=== PATIENT | female | born 1995 | race American Indian/Alaskan Native ===

== ENCOUNTER 2021-01-18 12:22 | Emergency (ER) | payer SELFPAY ==
[2021-01-18 14:47] VITALS: BP 126/81
--- NOTE | 2021-01-18 14:47 | Emergency Department Report ---
ED Female HPI - General Stated complaint: , ABD PAIN, HEADACHE Time Seen by Provider: 01/18/21 14:46 Source: patient Mode of arrival: Ambulatory Limitations: No Limitations - History of Present Illness Initial comments: 25-year-old female presents to the ER today with complaints of abdominal pain. Patient states that the pain started this morning. She described as a constant pain. Patient states that she is currently . She states that her last menstrual cycle was sometime in September 2020 but she is not exactly sure how many weeks she is. She did have her first [facility] appointment this past Saturday during which time a day did lab tests and made a follow-up appointment for the next 4 weeks. She states that is an [facility] at [place]. Patient denies any associated bleeding with the pain. She denies any abnormal discharge. She denies any nausea, vomiting or UTI symptoms. She is G3, P2 Ab1. Complaint: pelvic pain, other () -: Sudden (this morning ) - Related Data Allergies Allergy/AdvReac Type Severity Reaction Status Date / Time No Known Allergies Allergy Verified 01/18/21 14:47 ED Review of Systems ROS: Stated complaint: , ABD PAIN, HEADACHE Other details as noted in HPI Comment: All other systems reviewed and negative Constitutional: denies: chills, fever Eyes: denies: eye pain, eye discharge, vision change ENT: denies: ear pain, throat pain, dental pain, hearing loss, epistaxis, congestion Respiratory: denies: cough, shortness of breath, SOB with exertion, SOB at rest, wheezing Cardiovascular: denies: chest pain, palpitations, dyspnea on exertion, orthopnea, edema, syncope, paroxysmal nocturnal dyspnea Gastrointestinal: abdominal pain. denies: nausea, vomiting, diarrhea, constipation, hematemesis, hematochezia Genitourinary: denies: urgency, dysuria, frequency, hematuria, discharge, abnormal menses, dyspareunia Musculoskeletal: denies: back pain, joint swelling, arthralgia Skin: denies: rash, lesions, change in color, change in hair/nails, pruritus Neurological: denies: headache, weakness, numbness, paresthesias, confusion, abnormal gait, vertigo Psychiatric: denies: anxiety, depression, auditory hallucinations, visual hallucinations, homicidal thoughts, suicidal thoughts Hematological/Lymphatic: denies: easy bleeding, easy bruising ED Past Medical Hx - Social History Smoking Status: Never Smoker Substance Use Type: None ED Course Vital Signs 01/18/21 14:43 Temperature 98 F Pulse Rate 92 H Respiratory 16 Rate Blood Pressure 126/81 O2 Sat by Pulse 100 Oximetry ED Medical Decision Making - Lab Data Result diagrams: 01/18/21 15:14 01/18/21 15:14 - Radiology Data Radiology results: report reviewed Patient: HENNY OJEDA MR#: [id number] 7 : 1995 Acct:[id number] Age/Sex: 25 / F ADM Date: 01/18/21 Loc: ED Attending Dr: Ordering Physician: MARY JO MEADE Date of Service: 01/18/21 Procedure(s): US OB <= 14 wk fetus add gest Accession Number(s): [id number] cc: MARY JO MEADE US OB <= 14 wk fetus add gest INDICATION: lower abd pain/+preg/lmc sep 2020. TECHNIQUE: Transabdominal. COMPARISON: None. FINDINGS: There is a single intrauterine . Biparietal Diameter = 1.9 cm Head Circumference = 8.2 cm Abdominal Circumference = 7.5 cm Femur Length = 1.5 cm Heart Rate: 138 beats per minute. Position: cephalic. Cervix: Not well evaluated on this exam. Placenta: Not well evaluated on this exam Amniotic Fluid Volume: normal Maternal Adnexa: No significant abnormality. IMPRESSION: 1. Single, living intrauterine with estimated sonographic age of 13 weeks, 5 day(s). 2. No significant sonographic abnormality. Signer Name: Agusto Levi MD Signed: 01/18/2021 7:02 PM Workstation Name: [id number] Transcribed By: CS Dictated By: Agusto Levi MD Electronically Authenticated By: Agusto Levi MD Signed Date/Time: 01/18/211901 DD/ 00 TD/TT: - Medical Decision Making Quant HCG [id number] with US showing single live IUP measuring at about 13 weeks and 5 days; Nothing else acute noted seen on US CBC/CMP and UA unremarkable Pt currently resting comfortably. She is not in any pain distress. She is not toxic or ill appearing and appears well hydrated. He is neurologically intact with a normal gait in the ER. She has non surgical abd exam and therefore not concern for acute abdomen requiring additional imaging/testing indicated at this time. Her VS stable. Discussed US/lab results with patient. Recommend tylenol for pain but recommend close f/u with OBGYN. Pt expressed understanding of instructions and agreed with plan. Pt was stable at time of d/c. Critical care attestation.: If time is entered above; I have spent that time in minutes in the direct care of this critically ill patient, excluding procedure time. ED Disposition Clinical Impression: Abdominal pain during , 13 weeks gestation of Disposition: DC- TO HOME OR SELFCARE Is pt being admited?: No Does the pt Need Aspirin: No Condition: Stable Instructions: Abdominal Pain During Additional Instructions: Recommend taking Tylenol as needed for pain. Keep your appointment with the [facility] next month. Return to ER if your symptoms changes or worsens in any way. Referrals: PRIMARY CARE, [Primary Care Provider] - 3-5 Days Forms: Work/School Release Form(ED) Time of Disposition: 19:09
[2021-01-18 15:26] LABS: Basophils % (Auto) 0.6 % (0.0-1.8); Eosinophils # (Auto) 0.1 K/mm3 (0.0-0.4); Eosinophils % (Auto) 2.2 % (0.0-4.3); Hematocrit 35.7 % (30.3-42.9); Hemoglobin 11.7 gm/dl (10.1-14.3); Lymphocytes # (Auto) 1.8 K/mm3 (1.2-5.4); Mean Corpuscular HGB Conc 33 % (30-34); Mean Corpuscular Volume 90 fl (79-97); Monocytes # (Auto) 0.3 K/mm3 (0.0-0.8); Monocytes % (Auto) 4.8 % (0.0-7.3); Platelet Count 241 K/mm3 (140-440); Red Blood Count 3.94 M/mm3 (3.65-5.03)
[2021-01-18 15:51] LABS: Alanine Aminotransferase 19 units/L (7-56); Albumin 3.8 g/dL (3.9-5); Blood Urea Nitrogen 3 mg/dL (7-17); Calcium 9.1 mg/dL (8.4-10.2); Hemolysis Index 6
[2021-01-18 16:08] LABS: BUN/Creatinine Ratio 6
[2021-01-18] MEDS ORDERED: ACETAMINOPHEN 500 MG TAB PO ONE (17:02)
[2021-01-18 17:54] LABS: Bilirubin,Urine NEG (Negative); Blood,Urine NEG (Negative); Color,Urine Yellow (Yellow); Mucus,Urine 3+ /HPF; Urobilinogen,Urine < 2.0 mg/dL (<2.0)
--- NOTE | 2021-01-18 19:07 | Ultrasound Report ---
US OB <= 14 wk fetus add gest INDICATION: lower abd pain/+preg/lmc sep 2020. TECHNIQUE: Transabdominal. COMPARISON: None. FINDINGS: There is a single intrauterine . Biparietal Diameter = 1.9 cm Head Circumference = 8.2 cm Abdominal Circumference = 7.5 cm Femur Length = 1.5 cm Heart Rate: 138 beats per minute. Position: cephalic. Cervix: Not well evaluated on this exam. Placenta: Not well evaluated on this exam Amniotic Fluid Volume: normal Maternal Adnexa: No significant abnormality. IMPRESSION: 1. Single, living intrauterine with estimated sonographic age of 13 weeks, 5 day(s). 2. No significant sonographic abnormality. Signer Name: Agusto Levi MD Signed: 01/18/2021 7:02 PM Workstation Name: [id number]
== END 2021-01-18 19:14 | disposition home or self-care (01) ==
LOC: ED 12:22
DX: O26.891 Other specified pregnancy related conditions, first trimester (principal); R10.9 Unspecified abdominal pain; E86.0 Dehydration; Z3A.13 13 weeks gestation of pregnancy
CPT/HCPCS: 36415; 76801; 76802; 80053; 81001; 83690; 83735; 84702; 85025; 99284

== ENCOUNTER 2021-08-05 10:19 | Emergency (ER) | payer MEDICAID ==
--- NOTE | 2021-08-05 11:47 | Emergency Department Report ---
- General Chief Complaint: Skin/Abscess/Foreign Body Stated Complaint: INCISION RECHECK Time Seen by Provider: 08/05/21 11:26 Source: patient Mode of arrival: Ambulatory Limitations: No Limitations - History of Present Illness Initial Comments: 26-year-old female here with concern for possible wound infection of her C- section incision. She notes that she underwent about 2 weeks ago. For the past 4 to 5 days she has noticed foul odor. She states she has not had fevers chills. She has not had any pain. She has not noted any drainage. She states she came to the emergency department despite having an appointment on Saturday as her boyfriend had her concerned. - Related Data Previous Rx's Medication Instructions Recorded Last Taken Type Fluconazole [Diflucan TAB] 200 mg PO QDAY 1 Days #1 tablet 08/05/21 Unknown Rx Sulfamethoxazole/Trimethoprim 1 each PO BID 7 Days #14 tablet 08/05/21 Unknown Rx [Bactrim DS TAB] cephALEXin [Keflex] 500 mg PO Q6HR 7 Days #28 cap 08/05/21 Unknown Rx Allergies Allergy/AdvReac Type Severity Reaction Status Date / Time No Known Allergies Allergy Verified 01/18/21 14:47 ED Review of Systems ROS: Stated complaint: INCISION RECHECK Other details as noted in HPI Constitutional: denies: chills, fever Eyes: denies: eye pain ENT: denies: throat pain Respiratory: denies: cough Cardiovascular: denies: chest pain Endocrine: no symptoms reported Gastrointestinal: denies: abdominal pain, nausea, vomiting Genitourinary: denies: urgency, dysuria Musculoskeletal: denies: back pain Skin: rash Neurological: denies: headache, weakness Psychiatric: denies: anxiety, depression Hematological/Lymphatic: as per HPI ED Past Medical Hx - Social History Smoking Status: Never Smoker Substance Use Type: None - Medications Home Medications: Home Medications Medication Instructions Recorded Confirmed Last Taken Type Fluconazole [Diflucan TAB] 200 mg PO QDAY 1 Days #1 tablet 08/05/21 Unknown Rx Sulfamethoxazole/Trimethoprim 1 each PO BID 7 Days #14 tablet 08/05/21 Unknown Rx [Bactrim DS TAB] cephALEXin [Keflex] 500 mg PO Q6HR 7 Days #28 cap 08/05/21 Unknown Rx ED Physical Exam - General Limitations: No Limitations General appearance: alert, in no apparent distress - Head Head exam: Present: atraumatic, normocephalic - Eye Eye exam: Present: normal appearance Pupils: Present: normal accommodation - ENT ENT exam: Present: mucous membranes moist - Neck Neck exam: Present: normal inspection - Respiratory Respiratory exam: Present: normal lung sounds bilaterally. Absent: respiratory distress - Cardiovascular Cardiovascular Exam: Present: regular rate, normal rhythm. Absent: systolic murmur, diastolic murmur, rubs, gallop - GI/Abdominal GI/Abdominal exam: Present: soft, normal bowel sounds, other (Patient has a Pfannenstiel incision. There are some small areas of dehiscence but wound is mostly intact. There is no drainage. There is odor. There is also moistness to the wound.) - Rectal Rectal exam: Present: deferred - Extremities Exam Extremities exam: Present: normal inspection - Back Exam Back exam: Present: normal inspection - Neurological Exam Neurological exam: Present: alert, oriented X3 - Psychiatric Psychiatric exam: Present: normal affect, normal mood - Skin Skin exam: Present: other (See above and abdominal exam) ED Course Vital Signs 08/05/21 10:47 Temperature 98.8 F Pulse Rate 67 Respiratory 20 Rate Blood Pressure 156/92 [Right] O2 Sat by Pulse 98 Oximetry ED Medical Decision Making - Medical Decision Making This is a 26-year-old female here with complaint of possible wound infection. She has not had pain or fevers chills but notes a foul odor to the midline scar. It is moist. Will give antibiotics and Diflucan. Patient is instructed to follow-up with scheduled with her OB on Saturday. Critical care attestation.: If time is entered above; I have spent that time in minutes in the direct care of this critically ill patient, excluding procedure time. ED Disposition Clinical Impression: Wound infection Disposition: HOME / SELF CARE / HOMELESS Is pt being admited?: No Does the pt Need Aspirin: No Condition: Stable Instructions: Cellulitis, Adult Prescriptions: Sulfamethoxazole/Trimethoprim [Bactrim DS TAB] 1 each PO BID 7 Days #14 tablet Fluconazole [Diflucan TAB] 200 mg PO QDAY 1 Days #1 tablet cephALEXin [Keflex] 500 mg PO Q6HR 7 Days #28 cap Referrals: PRIMARY CARE, [Primary Care Provider] - 3-5 Days
[2021-08-05 13:39] LABS: Bilirubin,Urine NEG (Negative); Blood,Urine MOD (Negative); Color,Urine Straw (Yellow); Protein,Urine <15 mg/dL mg/dL (Negative); Urobilinogen,Urine < 2.0 mg/dL (<2.0)
[2021-08-05 15:21] LABS: Basophils # (Auto) 0.1 K/mm3 (0.0-0.1); Basophils % (Auto) 1.1 % (0.0-1.8); Eosinophils # (Auto) 0.1 K/mm3 (0.0-0.4); Eosinophils % (Auto) 2.4 % (0.0-4.3); Hemoglobin 14.3 gm/dl (10.1-14.3); Lymphocytes # (Auto) 2.5 K/mm3 (1.2-5.4); Lymphocytes % (Auto) 51.4 % (13.4-35.0); Mean Corpuscular HGB Conc 32 % (30-34); Mean Corpuscular Volume 88 fl (79-97); Monocytes # (Auto) 0.5 K/mm3 (0.0-0.8); Monocytes % (Auto) 9.4 % (0.0-7.3); Platelet Count 276 K/mm3 (140-440); Red Blood Count 5.12 M/mm3 (3.65-5.03); Red Cell Distribution Width 15.4 % (13.2-15.2)
[2021-08-05 15:29] LABS: INR 0.92 (0.87-1.13)
[2021-08-05 15:38] LABS: Alanine Aminotransferase 21 units/L (7-56); Blood Urea Nitrogen 9 mg/dL (7-17); Calcium 9.4 mg/dL (8.4-10.2); Hemolysis Index 24
[2021-08-05 15:39] LABS: BUN/Creatinine Ratio 15
[2021-08-05 15:59] VITALS: BP 149/98
--- NOTE | 2021-08-05 17:42 | Emergency Department Report ---
ED General Adult HPI - General Chief complaint: Skin/Abscess/Foreign Body Stated complaint: INCISION RECHECK Time Seen by Provider: 08/05/21 11:26 Source: patient Mode of arrival: Ambulatory Limitations: No Limitations - History of Present Illness Severity scale (0 -10): 0 - Related Data Previous Rx's Medication Instructions Recorded Last Taken Type Fluconazole [Diflucan TAB] 200 mg PO QDAY 1 Days #1 tablet 08/05/21 Unknown Rx Sulfamethoxazole/Trimethoprim 1 each PO BID 7 Days #14 tablet 08/05/21 Unknown Rx [Bactrim DS TAB] cephALEXin [Keflex] 500 mg PO Q6HR 7 Days #28 cap 08/05/21 Unknown Rx Allergies Allergy/AdvReac Type Severity Reaction Status Date / Time No Known Allergies Allergy Verified 01/18/21 14:47 ED Review of Systems ROS: Stated complaint: INCISION RECHECK Other details as noted in HPI Constitutional: denies: chills, fever Eyes: denies: eye pain ENT: denies: throat pain Respiratory: denies: cough Cardiovascular: denies: chest pain Endocrine: no symptoms reported Gastrointestinal: denies: abdominal pain, nausea, vomiting Genitourinary: denies: urgency, dysuria Musculoskeletal: denies: back pain Skin: rash Neurological: denies: headache, weakness Psychiatric: denies: anxiety, depression Hematological/Lymphatic: as per HPI ED Past Medical Hx - Social History Smoking Status: Never Smoker Substance Use Type: None - Medications Home Medications: Home Medications Medication Instructions Recorded Confirmed Last Taken Type Fluconazole [Diflucan TAB] 200 mg PO QDAY 1 Days #1 tablet 08/05/21 Unknown Rx Sulfamethoxazole/Trimethoprim 1 each PO BID 7 Days #14 tablet 08/05/21 Unknown Rx [Bactrim DS TAB] cephALEXin [Keflex] 500 mg PO Q6HR 7 Days #28 cap 08/05/21 Unknown Rx ED Physical Exam - General Limitations: No Limitations General appearance: alert, in no apparent distress ED Course Vital Signs 08/05/21 08/05/21 08/05/21 10:47 12:17 14:46 Temperature 98.8 F 98.0 F Pulse Rate 67 70 71 Respiratory 20 14 18 Rate Blood Pressure 156/92 174/108 137/95 [Right] O2 Sat by Pulse 98 100 98 Oximetry 08/05/21 15:58 Temperature Pulse Rate 72 Respiratory 18 Rate Blood Pressure 149/98 [Right] O2 Sat by Pulse 99 Oximetry ED Medical Decision Making - Lab Data Result diagrams: 08/05/21 14:52 08/05/21 14:52 Critical care attestation.: If time is entered above; I have spent that time in minutes in the direct care of this critically ill patient, excluding procedure time. ED Disposition Disposition: HOME / SELF CARE / HOMELESS Condition: Stable Instructions: Cellulitis, Adult Prescriptions: Sulfamethoxazole/Trimethoprim [Bactrim DS TAB] 1 each PO BID 7 Days #14 tablet Fluconazole [Diflucan TAB] 200 mg PO QDAY 1 Days #1 tablet cephALEXin [Keflex] 500 mg PO Q6HR 7 Days #28 cap Referrals: PRIMARY CARE, [Primary Care Provider] - 3-5 Days
[2021-08-05] MEDS ORDERED: MAGNESIUM SULFATE 4 GM/100 ML BAG IV ONE (18:00)
== END 2021-08-05 17:57 | disposition home or self-care (01) ==
LOC: ED 10:19
DX: O86.01 Infection of obstetric surgical wound, superficial incisional site (principal)
CPT/HCPCS: 36415; 80053; 81001; 85025; 85384; 85610; 85730; 99283; J3475